=== PATIENT | male | born 1970 | race Caucasian/White ===

== ENCOUNTER → 2022-12-13 | Outpatient (CLI) | payer OTHER ==
[2022-12-13 13:22] LABS: Prothrombin Time 10.7 sec (9.0-12.0)
[2022-12-13 13:28] LABS: Partial Thromboplastin Time 21.9 sec (22.0-30.0)
[2022-12-13 19:19] LABS: HCT 43.6 % (39.6-50.0); HGB 13.7 d/dL (12.0-15.0); MCH 29.6 pg (27.0-32.0); MCHC 31.4 d/dL (32.0-37.0); MCV 94.2 FL (80.0-97.0); Mean Platelet Volume 10.9 FL (9.5-12.2); NRBC Per 100 WBC 0 X 10*3/uL (0.00-0.01); Platelet Count 207 X 10*3/uL (140-440); RBC 4.63 X 10*6/uL (4.40-5.60); RDW 12.3 % (11.5-14.5); WBC 6.38 X 10*3/uL (4.50-10.00)
[2022-12-13 22:38] LABS: ALT 56 U/L (10-49); AST 50 U/L (14-35); Alkaline Phosphatase 104 U/L (41-126); Blood Urea Nitrogen 11.5 mg/dL (9.0-27.0); Carbon Dioxide 22.3 mmol/L (21.6-31.8); Chloride 106 mmol/L (96-109); Chol/HDL Ratio 1.86 Ratio; Ferritin 74.3 ng/mL (22.0-322.0); Globulin 2.5 d/dL (1.6-3.3); Glucose 85 mg/dL (70-110); Iron 81 UG/DL (65-175); LDL Cholesterol,Calculated 37.9 mg/dL (0.0-131.0); Magnesium 1.9 mg/dL (1.5-2.4); Phosphorus 3.2 mg/dL (2.4-5.1); Potassium 4.5 mmol/L (3.5-5.5); Sodium 140 mmol/L (135-145); Total Bilirubin 0.6 mg/dL (0.3-1.2); Total Iron Binding Capacity 399 UG/DL (228-460); Total Protein 6.5 d/dL (6.2-8.2); VLDL Calculation 13.02 mg/dL (5.00-40.00)
[2022-12-14 05:22] LABS: Prealbumin 15.4 mg/dL (18.0-42.0)
[2022-12-14 12:50] LABS: Zinc, Serum 56 ug/dL (60-130)
[2022-12-15 05:27] LABS: Vitamin A 25 ug/dL (38-106)
[2022-12-15 10:22] LABS: Vit B1(Thiamine) 67 ug/L (38-122)
== END | disposition home or self-care (01) ==
LOC: LABWHC1 10:48
PROVIDERS: ATTEND Surgery Plastic and Reconstructive Surgery
DX: E21.1 Secondary hyperparathyroidism, not elsewhere classified (principal); E66.01 Morbid (severe) obesity due to excess calories; D50.8 Other iron deficiency anemias; E44.0 Moderate protein-calorie malnutrition; E55.9 Vitamin D deficiency, unspecified; K74.1 Hepatic sclerosis; N19 Unspecified kidney failure; K50.90 Crohn's disease, unspecified, without complications
CPT/HCPCS: 36415; 80053; 80061; 82306; 82525; 82607; 82728; 82746; 83036; 83540; 83550; 83735; 83970; 84100; 84134; 84255; 84425; 84443; 84590; 84630; 85027; 85610; 85730

== ENCOUNTER 2022-12-14 08:55 | Day surgery (SDC) | payer MEDICARE, OTHER ==
[~2022-12-14 08:55] MED LIST: LACTATED RINGERS 1,000 ML IV SCH
[2022-12-14 09:21] VITALS: RESP 16; TEMP 97.6
[2022-12-14] MEDS ORDERED: PROPOFOL 10 MG/ML 20 ML VIAL IV ONE (09:46)
[2022-12-14] MEDS ORDERED: LIDOCAINE 2% INJ 20 MG/ML (2 ML VIAL) ONE (09:46)
--- NOTE | 2022-12-14 09:47 | P.GSHP ---
History of Present Illness H&P Date: 12/14/22 CHIEF COMPLAINT: GERD HISTORY OF PRESENT ILLNESS: The patient is a 52-year-old male who presents reports gastroesophageal reflux disease. Upper endoscopy was offered for further evaluation and management. PAST MEDICAL HISTORY: Please see list. PAST SURGICAL HISTORY: Please see list. MEDICATIONS: Please see list. ALLERGIES: Please see list. SOCIAL HISTORY: No illicit drug use FAMILY HISTORY: No reports of Crohn disease or ulcerative colitis. REVIEW OF ORGAN SYSTEMS: CONSTITUTIONAL: No reports of fevers or chills. GI: Denies any blood in stools or constipation. PHYSICAL EXAM: VITAL SIGNS: Stable GENERAL: Well-developed and pleasant in no acute distress. HEENT: No scleral icterus. Extraocular movements grossly intact. Moist buccal mucosa. NECK: Supple without lymphadenopathy. CHEST: Unlabored respirations. Equal bilateral excursions. CARDIOVASCULAR: Regular rate and rhythm. Distal 2+ pulses. ABDOMEN: Soft, nondistended. MUSCULOSKELETAL: No clubbing, cyanosis, or edema. ASSESSMENT: 1. Gastroesophageal reflux disease PLAN: 1. Recommend proceeding with an upper endoscopy Past Medical History Past Medical History: Asthma, Chest Pain / Angina, GERD/Reflux, Hypertension Additional Past Medical History / Comment(s): HAS HAD 400 LB WT LOSS History of Any Multi-Drug Resistant Organisms: None Reported Past Surgical History: Bariatric Surgery, Hernia Repair Additional Past Surgical History / Comment(s): SX FOR UNDESCENDED TESTICLE INFANT, SLEEVE GASTRECTOMY 2013, DUODENAL SWITCH 2015 bunionectomy, umblical h ernia Past Anesthesia/Blood Transfusion Reactions: No Reported Reaction Smoking Status: Never smoker - Past Family History Mother Family Medical History: No Reported History Medications and Allergies Home Medications Medication Instructions Recorded Confirmed Type Albuterol Inhaler [Ventolin Hfa 2 puff INHALATION DIRECTED PRN 10/26/15 12/14/22 History Inhaler] EPINEPHrine (Auto Inject) [Epipen] 1 applic SQ DIRECTED PRN 10/26/15 12/14/22 History Nystatin/Triamcin 1 applic TOPICAL DIRECTED PRN 10/26/15 12/14/22 History [Nystatin-Triamcinolone Cream] Pantoprazole Sodium 40 mg PO DAILY 10/26/15 12/14/22 History traZODone HCL [Desyrel] 100 mg PO BID PRN 10/26/15 12/14/22 History Ibuprofen 800 mg PO Q8H PRN 12/09/22 12/14/22 History Allergies Allergy/AdvReac Type Severity Reaction Status Date / Time venom-honey bee Allergy Anaphylaxis Verified 12/14/22 09:22 [bee venom (honey bee)] Surgical - Exam Vital Signs Temp Pulse Resp BP Pulse Ox 97.6 F 44 L 16 122/68 98 12/14/22 09:12 12/14/22 09:12 12/14/22 09:12 12/14/22 09:12 12/14/22 09:12
[2022-12-14 10:26] VITALS: BP 122/74; PULSE 48
--- NOTE | 2022-12-14 11:21 | P.PCN ---
Date of Procedure: 12/14/22 Description of Procedure: PREOPERATIVE DIAGNOSIS: Gastroesophageal reflux disease. Morbid obesity. Dysphagia History of duodenal switch POSTOPERATIVE DIAGNOSIS: Gastroesophageal reflux disease. Morbid obesity. Dysphagia History of duodenal switch Gastritis OPERATION: Esophagogastroduodenoscopy with biopsies along antrum and small intestinal SURGEON: January Abdi MD ANESTHESIA: MAC. INDICATIONS: The patient is a 52-year-old male who presents with reflux disease. Benefits and risks of the procedure were described. Informed consent was obtained. DESCRIPTION: The patient was brought into the endoscopy suite and laid in the left lateral decubitus position. An Olympus gastroscope was passed along the posterior oropharynx down to the distal esophagus where the squamocolumnar junction was encountered at 40 cm from the incisors. The stomach was entered and no bile reflux was found. Additional findings are listed below. Biopsies with cold forceps were obtained of the antrum. The scope was passed to the anastomosis of the duodenal switch with biopsies obtained. Retroflexion of the scope confirmed Hill grade 2 lower esophageal valve. The squamocolumnar junction demonstrated LA grade B erosive esophagitis. The stomach was desufflated. The patient tolerated the procedure well. FINDINGS: Squamocolumnar junction 40 cm from the incisors. Diaphragmatic hiatus at 40 cm. Hill grade 4 lower esophageal valve. LA grade B erosive esophagitis. Biopsies obtained at anastomosis of duodenal switch Chronic gastritis with biopsies obtained. RECOMMENDATIONS: Upper endoscopy as needed. Plan - Discharge Summary Discharge Rx Participant: No New Discharge Prescriptions: Continue traZODone HCL [Desyrel] 100 mg PO BID PRN PRN Reason: SLEEP Pantoprazole Sodium 40 mg PO DAILY Nystatin/Triamcin [Nystatin-Triamcinolone] 1 applic TOPICAL DIRECTED PRN PRN Reason: SKIN RASH EPINEPHrine (Auto Inject) [Epipen] 1 applic SQ DIRECTED PRN PRN Reason: Allergic Reaction Albuterol Inhaler [Ventolin Hfa Inhaler] 2 puff INHALATION DIRECTED PRN PRN Reason: Shortness Of Breath Discontinued Ibuprofen 800 mg PO Q8H PRN PRN Reason: Pain Discharge Medication List Albuterol Inhaler [Ventolin Hfa Inhaler] 2 puff INHALATION DIRECTED PRN 10/26/15 [History] EPINEPHrine (Auto Inject) [Epipen] 1 applic SQ DIRECTED PRN 10/26/15 [History] Nystatin/Triamcin [Nystatin-Triamcinolone] 1 applic TOPICAL DIRECTED PRN 10/26/15 [History] Pantoprazole Sodium 40 mg PO DAILY 10/26/15 [History] traZODone HCL [Desyrel] 100 mg PO BID PRN 10/26/15 [History] Follow up Appointment(s)/Referral(s): January Abdi MD [STAFF PHYSICIAN] - As Needed Patient Instructions/Handouts: Gastritis (DC) Discharge Disposition: HOME SELF-CARE
== END 2022-12-14 11:40 | disposition home or self-care (01) ==
LOC: ORWHC2ENDO 08:55
PROVIDERS: ATTEND Surgery Plastic and Reconstructive Surgery
DX: K29.50 Unspecified chronic gastritis without bleeding (principal); K29.80 Duodenitis without bleeding; D72.820 Lymphocytosis (symptomatic); K21.9 Gastro-esophageal reflux disease without esophagitis; E66.01 Morbid (severe) obesity due to excess calories; J45.909 Unspecified asthma, uncomplicated; I10 Essential (primary) hypertension; Z98.84 Bariatric surgery status; Z98.890 Other specified postprocedural states; Z79.51 Long term (current) use of inhaled steroids; Z79.899 Other long term (current) drug therapy; Z91.030 Bee allergy status
CPT/HCPCS: 88305; 43239; J2704; J2001